=== PATIENT | female | born 1995 | race Caucasian/White ===

== ENCOUNTER 2017-07-21 23:20 | Emergency (ER) | payer OTHER ==
[~2017-07-21 23:20] MED LIST: NITR1CAP36 PO; PREN1CAP30 PO; PROM25TA10 PO; ZANT150T2 PO
[2017-07-22 00:32] LABS: BACTERIA, URINE RARE /hpf; BILIRUBIN, URINE NEG (NEG); BLOOD, URINE NEG (NEG); GLUCOSE,URINE NEG (NEG); KETONE, URINE NEG (NEG); MUCUS URINE FEW /lpf (OCC); NITRITE,URINE NEG (NEG); SQUAMOUS EPITHELIAL CELL URINE <1 /hpf (0-5); URINE COLOR YELLOW (YELLW/STRAW); URINE LEUKOCYTE ESTERASE NEG (NEG)
--- NOTE | 2017-07-22 00:32 | PD ---
HPI Chief Complaint Spotting Date Seen: Jul 22, 2017 Time Seen: 00:21 Travel History International Travel<30 Days: No Contact w/Intl Traveler<30Days: No Known Affected Area: No History of Present Illness HPI 22-year-old 2 para 1 at 29-3/7 weeks gestation presents tonight with complaint of light vaginal spotting. She also had mild cramping. She denies any leakage of fluid or significant vaginal discharge. She reports good movement. Her last intercourse was 2 weeks ago. She denies any dysuria hematuria or frequency. She reports that she was being treated for a urinary tract infection 2 weeks ago and discontinued her antibiotic course without completing it. History Past Medical History Medical History: Denies Significant Hx Obstetric History Obstetric History One prior term vaginal delivery [facility] She is Rh- and reports having received RhoGAM last week. Past Surgical History Narrative Surgical Cholecystectomy Family History Family History: Negative Social History Alcohol Use: No Tobacco Use: No Substance Abuse: No Allergies-Medications (Allergen,Severity, Reaction): Coded Allergies: codeine (Unverified Allergy, Severe, 07/04/17) itchy rash and vomiting onion (Unverified Allergy, Severe, throat swelling, 07/04/17) tomato (Unverified Allergy, Severe, hives, 07/04/17) Home Meds Active Scripts Ranitidine (Zantac) 150 Mg Tab, 150 MG PO BID for Reduce Stomach Acid, #60 TAB 6 Refills Prov:Lala Bustamante 07/04/17 Nitrofurantoin Macrocrystal (Nitrofurantoin Macrocrystal) 100 Mg Cap, 100 MG PO BID for Infection, #14 CAP 0 Refills Prov:Lala Bustamante 06/20/17 Without A W/Fe Fum-Fe (Provida Dha 16-16-1.25-110 mg) 1 Cap Cap, 1 TAB PO DAILY for 30 Days, #1 BOTTLE 11 Refills Prov:Lala Bustamante 03/06/17 Promethazine (Phenergan) 25 Mg Tablet, 25 MG PO Q6H Y for NAUSEA OR VOMITING, # 30 TAB 0 Refills Prov:Lala Bustamante 03/06/17 Review of Systems Except as stated in HPI: all other systems reviewed are Neg Physical Exam Narrative GENERAL: Well-nourished, well-developed patient. SKIN: Warm and dry. HEAD: Normocephalic and atraumatic. EYES: No scleral icterus. No injection or drainage. ENT: No nasal drainage noted. Mucous membranes pink. Airway patent. NECK: Supple, trachea midline. No JVD. CARDIOVASCULAR: Regular rate and rhythm without murmurs, gallops, or rubs. RESPIRATORY: Breath sounds equal bilaterally. No accessory muscle use. ABDOMEN/GI: Abdomen soft, non-tender, bowel sounds present, no rebound, no guarding Gravid to [-] weeks size Fundal Height: [-] GENITOURINARY: External Genitalia: intact and normal in appearance BUS glands: [Negative, vaginal discharge appears physiologic with a slight pink discoloration-] Cervix: [No active bleeding from the cervix-] Dilatation: [Closed-] Effacement: [-Long] Station: [High] Presentation: [-] Membranes: [intact ] Uterine Contractions: [-None] FHT's: Category: [-1] Baseline: [-] Reactive: [-y] Variability: [-] Decels: [-] EXTREMITIES: No cyanosis or edema. BACK: Nontender without obvious deformity. No CVA tenderness. NEUROLOGICAL: Awake and alert. Motor and sensory grossly within normal limits. Five out of 5 muscle strength in all muscle groups. Normal speech. Data Data Orders Orders Vital Signs (Adult) .ON ADMISSION (07/22/17 00:19) ^ Labor Status (07/22/17 00:19) Urinalysis - C+S If Indicated (07/22/17 00:19) ^ Non Stress Test (07/22/17 00:19) Wet Prep Profile (07/22/17 00:19) MDM Medical Record Reviewed: Yes Narrative Course / MDM Assessment: 29+ week intrauterine with minimal spotting without evidence of cervical change or contraction activity. No vaginitis or urinary tract infection are apparent. Plan: She is Rh- and received Gema last week. Precautions reviewed. Diagnosis Diagnosis: Primary Impression: 29 weeks gestation of Additional Impression: Spotting affecting in third trimester Disposition: DISCHARGE HOME Condition: Good Luis Weston MD Jul 22, 2017 00:32
[2017-07-28] MEDS ORDERED: MEDR4PAK PO (09:11)
[2017-07-28] MEDS ORDERED: PROC2.5C RECTAL (09:11)
== END 2017-07-22 01:08 | disposition home or self-care (01) ==
LOC: HOBED 23:20
DX: O26.853 Spotting complicating pregnancy, third trimester (principal); Z3A.29 29 weeks gestation of pregnancy
CPT/HCPCS: 81001; 87210; 99284

== ENCOUNTER 2017-08-27 13:26 | Emergency (ER) | payer OTHER ==
[~2017-08-27 13:26] MED LIST changes: +MEDR4PAK PO; -NITR1CAP36 PO; +PROC2.5C RECTAL
[2017-08-27] MEDS ORDERED: LACTATED RINGER'S 1000 ML INJ 1,000 ML IV ONE (13:27)
[2017-08-27] MEDS ORDERED: ONDANSETRON HCL 4 MG/2 ML VIAL ONE (14:14)
--- NOTE | 2017-08-27 14:14 | PD ---
HPI Chief Complaint Nausea and vomiting Date Seen: Aug 27, 2017 Travel History International Travel<30 Days: No Contact w/Intl Traveler<30Days: No Known Affected Area: No History of Present Illness HPI 22-year-old 2 para 1 at 34+ weeks gestation who reports multiple episodes of nausea and vomiting since this morning. She denies any fever chills , hematuria dysuria or frequency. She reports good movement, no leakage of fluid or bleeding. She is uncertain if she is having any cramping. History Past Medical History Medical History: Denies Significant Hx Obstetric History Obstetric History One prior term vaginal delivery Current is uncomplicated. Past Surgical History Narrative Surgical Cholecystectomy Family History Family History: Negative Social History Alcohol Use: No Tobacco Use: No Substance Abuse: No Allergies-Medications (Allergen,Severity, Reaction): Coded Allergies: codeine (Unverified Allergy, Severe, 08/07/17) itchy rash and vomiting onion (Unverified Allergy, Severe, throat swelling, 08/07/17) tomato (Unverified Allergy, Severe, hives, 08/07/17) Home Meds Active Scripts Methylprednisolone Dosepak (Medrol Dosepak) 4 Mg Dspk, 4 MG PO DIRECTED, #1 DSPK 0 Refills Per Pharmacist direction Prov:Lala Bustamante 07/28/17 Hydrocortisone Rectal 2.5% (Proctosol Hc 2.5%) 2.5% Cream, 1 APPLIC RECTAL Q4H Y for PAIN/INFLAMMATION, #1 TUBE 2 Refills Prov:Lala Bustamante 07/28/17 Ranitidine (Zantac) 150 Mg Tab, 150 MG PO BID for Reduce Stomach Acid, #60 TAB 6 Refills Prov:Lala Bustamante 07/04/17 Without A W/Fe Fum-Fe (Provida Dha 16-16-1.25-110 mg) 1 Cap Cap, 1 TAB PO DAILY for 30 Days, #1 BOTTLE 11 Refills Prov:Lala Bustamante 03/06/17 Promethazine (Phenergan) 25 Mg Tablet, 25 MG PO Q6H Y for NAUSEA OR VOMITING, # 30 TAB 0 Refills Prov:Lala Bustamante 03/06/17 Review of Systems Except as stated in HPI: all other systems reviewed are Neg Physical Exam Narrative GENERAL: Well-nourished, well-developed patient. SKIN: Warm and dry. HEAD: Normocephalic and atraumatic. EYES: No scleral icterus. No injection or drainage. ENT: No nasal drainage noted. Mucous membranes pink. Airway patent. NECK: Supple, trachea midline. No JVD. CARDIOVASCULAR: Regular rate and rhythm without murmurs, gallops, or rubs. RESPIRATORY: Breath sounds equal bilaterally. No accessory muscle use. BREASTS: Bilateral exam showed no masses , no retractions, no nipple discharge. ABDOMEN/GI: Abdomen soft, non-tender, bowel sounds present, no rebound, no guarding Gravid to [-] weeks size Fundal Height: [-] GENITOURINARY: External Genitalia: intact and normal in appearance BUS glands: [-Normal] Cervix: [-] Dilatation: [Closed-] Effacement: [-Long] Station: [-High] Presentation: [-] Membranes: [intact] Uterine Contractions: [None] FHT's: Category: [-1] Baseline: [-] Reactive: [-] Variability: [-] Decels: [-] EXTREMITIES: No cyanosis or edema. BACK: Nontender without obvious deformity. No CVA tenderness. NEUROLOGICAL: Awake and alert. Motor and sensory grossly within normal limits. Five out of 5 muscle strength in all muscle groups. Normal speech. Data Data Vital Signs Reviewed: Yes Group B Strep: Negative MDM Medical Record Reviewed: Yes Narrative Course / MDM Assessment: Probable viral gastroenteritis Plan: IV hydration, antiemetics Diagnosis Diagnosis: Primary Impression: 34 weeks gestation of Additional Impression: Gastroenteritis Disposition: 01 DISCHARGE HOME Condition: Good Scripts Ondansetron Odt (Zofran Odt) 4 Mg Tab 4 MG SL Q6HR Y for Nausea/Vomiting, #12 TAB 0 Refills Prov: Luis Weston MD 08/27/17 Luis Weston MD Aug 27, 2017 14:14
[2017-08-27] MEDS ORDERED: ONDANSETRON ODT 4 MG TAB PO ONE (14:15)
[2017-08-27] MEDS ORDERED: ZOFR4TAB3 SL (14:43)
== END 2017-08-27 15:09 | disposition home or self-care (01) ==
LOC: HOBED 13:26
DX: O26.893 Other specified pregnancy related conditions, third trimester (principal); K52.9 Noninfective gastroenteritis and colitis, unspecified; Z3A.34 34 weeks gestation of pregnancy; Z88.5 Allergy status to narcotic agent
CPT/HCPCS: 59025; 96374; 99284; J2405; J7120

== ENCOUNTER 2017-09-12 23:18 | Emergency (ER) | payer OTHER ==
[~2017-09-12 23:18] MED LIST changes: +ZOFR4TAB3 SL
--- NOTE | 2017-09-12 23:59 | PD ---
HPI Chief Complaint Patient complains of persistent cough Date Seen: Sep 12, 2017 Time Seen: 23:48 Travel History International Travel<30 Days: No Contact w/Intl Traveler<30Days: No Known Affected Area: No History of Present Illness HPI 22-year-old white female at 37 weeks who [facility] the [facility] and presents complaining of persistent severe cough for 6 days, she went to the [facility] diagnosed with bronchitis and given a Z-Saud but no medicine for cough. She has no obstetric problem other than some pains in the abdomen related to coughing so much there are no contractions on the monitor heart rate tracing is reactive. Denies leakage or bleeding. Weeks Gestation: 37 Para: 1 : 2 History Obstetric History Obstetric History 1 vaginal delivery Social History Alcohol Use: No Tobacco Use: No Substance Abuse: No Allergies-Medications (Allergen,Severity, Reaction): Coded Allergies: codeine (Unverified Allergy, Severe, 08/07/17) itchy rash and vomiting onion (Unverified Allergy, Severe, throat swelling, 08/07/17) tomato (Unverified Allergy, Severe, hives, 08/07/17) Home Meds Active Scripts Ondansetron Odt (Zofran Odt) 4 Mg Tab, 4 MG SL Q6HR Y for Nausea/Vomiting, #12 TAB 0 Refills Prov:Luis Weston MD 08/27/17 Methylprednisolone Dosepak (Medrol Dosepak) 4 Mg Dspk, 4 MG PO DIRECTED, #1 DSPK 0 Refills Per Pharmacist direction Prov:Lala Bustamante 07/28/17 Hydrocortisone Rectal 2.5% (Proctosol Hc 2.5%) 2.5% Cream, 1 APPLIC RECTAL Q4H Y for PAIN/INFLAMMATION, #1 TUBE 2 Refills Prov:Lala Bustamante 07/28/17 Ranitidine (Zantac) 150 Mg Tab, 150 MG PO BID for Reduce Stomach Acid, #60 TAB 6 Refills Prov:Lala Bustamante 07/04/17 Without A W/Fe Fum-Fe (Provida Dha 16-16-1.25-110 mg) 1 Cap Cap, 1 TAB PO DAILY for 30 Days, #1 BOTTLE 11 Refills Prov:Ariana Bustamanterani NIELSEN 03/06/17 Promethazine (Phenergan) 25 Mg Tablet, 25 MG PO Q6H Y for NAUSEA OR VOMITING, # 30 TAB 0 Refills Prov:RobbyLala Gustavo NIELSEN 03/06/17 Review of Systems General / Constitutional: No: Fever, Weight Gain, Chills, Other Eyes: No: Diploplia, Blurred Vision, Visual changes, Pain, Photophobia HENT: No: Headaches, Vertigo, Lightheadedness Cardiovascular: No: Irregular Rhythm, Chest Pain or Discomfort, Palpitations, Tachycardia, Syncope, Varicosities, Edema, Cyanosis Respiratory: Cough, No: Short of Breath, Other Gastrointestinal: No: Nausea, Vomiting, Diarrhea Genitourinary: No: Decreased Urinary Output, Oliguria Musculoskeletal: No: Limited ROM, Weakness, Cramping, Edema, Pain Skin: No Rash, No Itching, No Dryness, No Lumps, No Change in Pigmentation, No Change in Nails, No Alopecia, No Lesions Neurologic: No: Weakness, Dizziness, Syncope, Focal Abnormalities, Coordination Problem, Headache, Slurred Speech, Seizures Psychiatric: No: Depression, Suicidal Ideations, Homicidal Ideation Endocrine: No: Heat Intolerance, Cold Intolerance, Polydipsia, Polyuria, Other Physical Exam Narrative GENERAL: Well-nourished, well-developed patient. SKIN: Warm and dry. HEAD: Normocephalic and atraumatic. EYES: No scleral icterus. No injection or drainage. ENT: No nasal drainage noted. Mucous membranes pink. Airway patent. No redness or exudate or swelling NECK: Supple, trachea midline. No JVD. CARDIOVASCULAR: Regular rate and rhythm without murmurs, gallops, or rubs. RESPIRATORY: Breath sounds equal bilaterally. No accessory muscle use. BREASTS: Bilateral exam showed no masses , no retractions, no nipple discharge. ABDOMEN/GI: Abdomen soft, non-tender, bowel sounds present, no rebound, no guarding Gravid to [-37] weeks size Fundal Height: [37-] GENITOURINARY: -] Membranes: [intact ] Uterine Contractions: [-none] FHT's: Category: [1-] Baseline: [-133] Reactive: [-R] Variability: [-mod] Decels: [-none] EXTREMITIES: No cyanosis or edema. BACK: Nontender without obvious deformity. No CVA tenderness. NEUROLOGICAL: Awake and alert. Motor and sensory grossly within normal limits. Five out of 5 muscle strength in all muscle groups. Normal speech. MDM Interpretation(s) 22-year-old white female with persistent cough related to URI, patient's on Z- Saud now for the same infection given to her by the [facility]. She is continuing to cough however has had that problem for 6 days. Robitussin [id number] has not been helpful patient states that she had an allergy to codeine but when questioned that just made her throw up and she was so young she cannot remember what it did or if he did anything. In this case because coatings about the only thing this can really help this cough I suggested she take it with Phenergan with codeine cough syrup in small doses at first and then if it does not cause a problem continued to take it for cough therapy Plan Plan to give patient a prescription for Phenergan with codeine cough syrup use as described above follow-up with Dr. Neeraj Knight in 2 days Diagnosis Diagnosis: Primary Impression: Cough Additional Impressions: Upper respiratory infection, acute Abdominal pain affecting Disposition: 01 DISCHARGE HOME Condition: Stable El Tang II, MD Sep 12, 2017 23:59
== END 2017-09-13 00:07 | disposition home or self-care (01) ==
LOC: HOBED 23:18
DX: O26.893 Other specified pregnancy related conditions, third trimester (principal); J06.9 Acute upper respiratory infection, unspecified; R10.9 Unspecified abdominal pain; Z3A.37 37 weeks gestation of pregnancy; Z88.5 Allergy status to narcotic agent; Z79.899 Other long term (current) drug therapy
CPT/HCPCS: 99283

== ENCOUNTER → 2017-10-08 | Emergency (ER) | payer OTHER ==
[~2017-10-08] MED LIST changes: +IBUP1TAB7 PO
--- NOTE | 2017-10-08 16:09 | PD ---
HPI Chief Complaint ctxs, ? srom Date Seen: Oct 08, 2017 Time Seen: 16:00 Travel History International Travel<30 Days: No Contact w/Intl Traveler<30Days: No Known Affected Area: No History of Present Illness HPI pt. is a 22 y/o @ 40 4/7 weeks w/ c/o some fluid leak and ctxs. pt. states fluid began earlier today and ctxs began last pm. ctxs increased in freq and intensity since. +FM, no vb. Weeks Gestation: 40 Para: 1 : 2 History Past Medical History Medical History: Denies Significant Hx Obstetric History Obstetric History , s/p Past Surgical History Surgical History: No Previous Surgery Family History Family History: Negative Social History Alcohol Use: No Tobacco Use: No Substance Abuse: No Allergies-Medications (Allergen,Severity, Reaction): Coded Allergies: codeine (Unverified Allergy, Severe, 08/07/17) itchy rash and vomiting onion (Unverified Allergy, Severe, throat swelling, 08/07/17) tomato (Unverified Allergy, Severe, hives, 08/07/17) Home Meds Active Scripts Ondansetron Odt (Zofran Odt) 4 Mg Tab, 4 MG SL Q6HR Y for Nausea/Vomiting, #12 TAB 0 Refills Prov:Luis Weston MD 08/27/17 Methylprednisolone Dosepak (Medrol Dosepak) 4 Mg Dspk, 4 MG PO DIRECTED, #1 DSPK 0 Refills Per Pharmacist direction Prov:Lala Bustamante 07/28/17 Hydrocortisone Rectal 2.5% (Proctosol Hc 2.5%) 2.5% Cream, 1 APPLIC RECTAL Q4H Y for PAIN/INFLAMMATION, #1 TUBE 2 Refills Prov:Lala Bustamante 07/28/17 Ranitidine (Zantac) 150 Mg Tab, 150 MG PO BID for Reduce Stomach Acid, #60 TAB 6 Refills Prov:Lala Bustamante 07/04/17 Without A W/Fe Fum-Fe (Provida Dha 16-16-1.25-110 mg) 1 Cap Cap, 1 TAB PO DAILY for 30 Days, #1 BOTTLE 11 Refills Prov:Lala Bustamante 03/06/17 Promethazine (Phenergan) 25 Mg Tablet, 25 MG PO Q6H Y for NAUSEA OR VOMITING, # 30 TAB 0 Refills Prov:Lala BustamanteLaxmi GARYP 03/06/17 Review of Systems Except as stated in HPI: all other systems reviewed are Neg Physical Exam Narrative GENERAL: Well-nourished, well-developed patient. SKIN: Warm and dry. HEAD: Normocephalic and atraumatic. EYES: No scleral icterus. No injection or drainage. ENT: No nasal drainage noted. Mucous membranes pink. Airway patent. NECK: Supple, trachea midline. No JVD. CARDIOVASCULAR: Regular rate and rhythm without murmurs, gallops, or rubs. RESPIRATORY: Breath sounds equal bilaterally. No accessory muscle use. BREASTS: Bilateral exam showed no masses , no retractions, no nipple discharge. ABDOMEN/GI: Abdomen soft, non-tender, bowel sounds present, no rebound, no guarding Gravid GENITOURINARY: External Genitalia: intact and normal in appearance Cervix: post Dilatation: 2 Effacement: 80 Station: high Presentation: cephalic Membranes: intact, amniosure - Uterine Contractions: irreg FHT's: Category: 1 Reactive: + Variability: mod Decels: none EXTREMITIES: No cyanosis or edema. BACK: Nontender without obvious deformity. No CVA tenderness. NEUROLOGICAL: Awake and alert. Motor and sensory grossly within normal limits. Five out of 5 muscle strength in all muscle groups. Normal speech. Data Data Vital Signs Reviewed: Yes [facility] Medical Record Reviewed: Yes Plan pt. not in active labor as no cervical change and amniosure -. condition d/w pt. pt. to be d/c to home. pt. given precautions for return. f/u as sched. Diagnosis Diagnosis: Primary Impression: Uterine contractions during Additional Impressions: Leakage of amniotic fluid 40 weeks gestation of Disposition: 01 DISCHARGE HOME Costa Moore Jr., MD Oct 08, 2017 16:09
== END | disposition home or self-care (01) ==
LOC: HOBED 13:45
DX: O42.92 Full-term premature rupture of membranes, unspecified as to length of time between rupture and onset of labor (principal); Z3A.40 40 weeks gestation of pregnancy
CPT/HCPCS: 59025; 84112

== ENCOUNTER 2017-10-09 06:06 | Inpatient (IN) | payer OTHER ==
[~2017-10-09] VITALS: Ht 167.6 cm; Wt 111.0 kg
[~2017-10-09 06:06] MED LIST changes: -IBUP1TAB7 PO
[2017-10-09] MEDS ORDERED: OXYTOCIN 30 UNITS-500ML PREMIX 500 ML ONE (06:11)
[2017-10-09] MEDS ORDERED: LIDOCAINE HCL 1% PF 30 ML VIAL ONE (06:11)
[2017-10-09] MEDS ORDERED: LIDOCAINE 1%/EPINEPHrine 1:100,000 SOLN 30 ML VIAL ONE (06:12)
[2017-10-09] MEDS ORDERED: OXYTOCIN 10 UNIT/ML AMP ONE (06:14)
--- NOTE | 2017-10-09 06:42 | PD ---
HPI Chief Complaint ctxs Date Seen: Oct 09, 2017 Time Seen: 06:38 Travel History International Travel<30 Days: No Contact w/Intl Traveler<30Days: No Known Affected Area: No History of Present Illness HPI pt. is a 22 y/o @ 40 5/7 weeks present w/ c/o ctxs. pt. seen earlier w / ctxs, but not in active labor. pt. states increased in intensity and freq after she left. Had srom in car. no vb. Weeks Gestation: 40 Para: 1 : 2 History Past Medical History Medical History: Denies Significant Hx Obstetric History Obstetric History , x 1 Past Surgical History Surgical History: No Previous Surgery Family History Family History: Negative Social History Alcohol Use: No Tobacco Use: No Substance Abuse: No Allergies-Medications (Allergen,Severity, Reaction): Coded Allergies: codeine (Unverified Allergy, Severe, 08/07/17) itchy rash and vomiting onion (Unverified Allergy, Severe, throat swelling, 08/07/17) tomato (Unverified Allergy, Severe, hives, 08/07/17) Home Meds Active Scripts Ondansetron Odt (Zofran Odt) 4 Mg Tab, 4 MG SL Q6HR Y for Nausea/Vomiting, #12 TAB 0 Refills Prov:Luis Weston MD 08/27/17 Methylprednisolone Dosepak (Medrol Dosepak) 4 Mg Dspk, 4 MG PO DIRECTED, #1 DSPK 0 Refills Per Pharmacist direction Prov:Lala Bustamante 07/28/17 Hydrocortisone Rectal 2.5% (Proctosol Hc 2.5%) 2.5% Cream, 1 APPLIC RECTAL Q4H Y for PAIN/INFLAMMATION, #1 TUBE 2 Refills Prov:Lala Bustamante 07/28/17 Ranitidine (Zantac) 150 Mg Tab, 150 MG PO BID for Reduce Stomach Acid, #60 TAB 6 Refills Prov:Lala Bustamante 07/04/17 Without A W/Fe Fum-Fe (Provida Dha 16-16-1.25-110 mg) 1 Cap Cap, 1 TAB PO DAILY for 30 Days, #1 BOTTLE 11 Refills Prov:Lala Bsutamante 03/06/17 Promethazine (Phenergan) 25 Mg Tablet, 25 MG PO Q6H Y for NAUSEA OR VOMITING, # 30 TAB 0 Refills Prov:Lala Bustamante [employer] INSPECTOR 03/06/17 Review of Systems Except as stated in HPI: all other systems reviewed are Neg Physical Exam Narrative GENERAL: Well-nourished, well-developed patient. SKIN: Warm and dry. HEAD: Normocephalic and atraumatic. EYES: No scleral icterus. No injection or drainage. ENT: No nasal drainage noted. Mucous membranes pink. Airway patent. NECK: Supple, trachea midline. No JVD. CARDIOVASCULAR: Regular rate and rhythm without murmurs, gallops, or rubs. RESPIRATORY: Breath sounds equal bilaterally. No accessory muscle use. BREASTS: Bilateral exam showed no masses , no retractions, no nipple discharge. ABDOMEN/GI: Abdomen soft, non-tender, bowel sounds present, no rebound, no guarding Gravid GENITOURINARY: External Genitalia: intact and normal in appearance BUS glands: [-] Cervix: ant Dilatation: 10 Effacement: 100 Station: +2 Presentation:cephalic Membranes: ruptured Uterine Contractions: q 2 min FHT's: Category: 2 Reactive: + Variability: mod Decels: theo EXTREMITIES: No cyanosis or edema. BACK: Nontender without obvious deformity. No CVA tenderness. NEUROLOGICAL: Awake and alert. Motor and sensory grossly within normal limits. Five out of 5 muscle strength in all muscle groups. Normal speech. Data Data Vital Signs Reviewed: Yes Orders Orders Oxytocin 30 Units-500ml Premix (Pitocin (10/09/17 06:11) Lidocaine Pf 1% Inj (Xylocaine-Mpf 1% In (10/09/17 06:11) Lidocai-Epi 1%-1:100,000 Inj (Xylocaine- (10/09/17 06:12) Oxytocin Inj (Pitocin Inj) (10/09/17 06:14) [place] Medical Record Reviewed: Yes Plan pt. in active labor. to be admitted. efm/toco. expect . Costa Moore Jr., MD Oct 09, 2017 06:42
--- NOTE | 2017-10-09 06:45 | HHI.HP ---
History & Physical H&P HPI Chief Complaint ctxs Date Seen: Oct 09, 2017 Time Seen: 06:38 Travel History International Travel<30 Days: No Contact w/Intl Traveler<30Days: No Known Affected Area: No History of Present Illness HPI pt. is a 22 y/o @ 40 5/7 weeks present w/ c/o ctxs. pt. seen earlier w / ctxs, but not in active labor. pt. states increased in intensity and freq after she left. Had srom in car. no vb. Weeks Gestation: 40 Para: 1 : 2 History Past Medical History Medical History: Denies Significant Hx Obstetric History Obstetric History , x 1 Past Surgical History Surgical History: No Previous Surgery Family History Family History: Negative Social History Alcohol Use: No Tobacco Use: No Substance Abuse: No Allergies-Medications (Allergen,Severity, Reaction): Coded Allergies: codeine (Unverified Allergy, Severe, 08/07/17) itchy rash and vomiting onion (Unverified Allergy, Severe, throat swelling, 08/07/17) tomato (Unverified Allergy, Severe, hives, 08/07/17) Home Meds Active Scripts Ondansetron Odt (Zofran Odt) 4 Mg Tab, 4 MG SL Q6HR Y for Nausea/Vomiting, #12 TAB 0 Refills Prov:Luis Weston MD 08/27/17 Methylprednisolone Dosepak (Medrol Dosepak) 4 Mg Dspk, 4 MG PO DIRECTED, #1 DSPK 0 Refills Per Pharmacist direction Prov:Lala Bustamante 07/28/17 Hydrocortisone Rectal 2.5% (Proctosol Hc 2.5%) 2.5% Cream, 1 APPLIC RECTAL Q4H Y for PAIN/INFLAMMATION, #1 TUBE 2 Refills Prov:Lala Bustamante 07/28/17 Ranitidine (Zantac) 150 Mg Tab, 150 MG PO BID for Reduce Stomach Acid, #60 TAB 6 Refills Prov:Lala Bustamante 07/04/17 Without A W/Fe Fum-Fe (Provida Dha 16-16-1.25-110 mg) 1 Cap Cap, 1 TAB PO DAILY for 30 Days, #1 BOTTLE 11 Refills Prov:Lala Bustamante DOUBLE END TRIMMER 03/06/17 Promethazine (Phenergan) 25 Mg Tablet, 25 MG PO Q6H Y for NAUSEA OR VOMITING, # 30 TAB 0 Refills Prov:Lala BustamanteLaxmi NIELSEN 03/06/17 Review of Systems Except as stated in HPI: all other systems reviewed are Neg Physical Exam Narrative GENERAL: Well-nourished, well-developed patient. SKIN: Warm and dry. HEAD: Normocephalic and atraumatic. EYES: No scleral icterus. No injection or drainage. ENT: No nasal drainage noted. Mucous membranes pink. Airway patent. NECK: Supple, trachea midline. No JVD. CARDIOVASCULAR: Regular rate and rhythm without murmurs, gallops, or rubs. RESPIRATORY: Breath sounds equal bilaterally. No accessory muscle use. BREASTS: Bilateral exam showed no masses , no retractions, no nipple discharge. ABDOMEN/GI: Abdomen soft, non-tender, bowel sounds present, no rebound, no guarding Gravid GENITOURINARY: External Genitalia: intact and normal in appearance BUS glands: [-] Cervix: ant Dilatation: 10 Effacement: 100 Station: +2 Presentation:cephalic Membranes: ruptured Uterine Contractions: q 2 min FHT's: Category: 2 Reactive: + Variability: mod Decels: theo EXTREMITIES: No cyanosis or edema. BACK: Nontender without obvious deformity. No CVA tenderness. NEUROLOGICAL: Awake and alert. Motor and sensory grossly within normal limits. Five out of 5 muscle strength in all muscle groups. Normal speech. Data Data Vital Signs Reviewed: Yes Orders Orders Oxytocin 30 Units-500ml Premix (Pitocin (10/09/17 06:11) Lidocaine Pf 1% Inj (Xylocaine-Mpf 1% In (10/09/17 06:11) Lidocai-Epi 1%-1:100,000 Inj (Xylocaine- (10/09/17 06:12) Oxytocin Inj (Pitocin Inj) (10/09/17 06:14) MDM Medical Record Reviewed: Yes Plan pt. in active labor. to be admitted. efm/toco. expect . Costa Moore Jr., MD Oct 09, 2017 06:45
[2017-10-09 07:06] VITALS: RESP 16
[2017-10-09] MEDS ORDERED: ONDANSETRON ODT 4 MG TAB PO PRN (07:15)
[2017-10-09] MEDS ORDERED: BENZOCAINE 20% TOPICAL SPRAY 60 ML CAN TOPICAL PRN (07:15)
[2017-10-09] MEDS ORDERED: SODIUM CHLORIDE 0.9% FLUSH 10 ML FLUSH IV FLUSH PRN (07:15)
[2017-10-09] MEDS ORDERED: ZOLPIDEM TARTRATE 5 MG TAB PO PRN (07:15)
[2017-10-09] MEDS ORDERED: ALUMINUM/MAGNESIUM/SIMETH 30 ML CUP PO PRN (07:15)
[2017-10-09] MEDS ORDERED: DOCUSATE SODIUM 50 MG/SENNA 8.6 MG TAB PO PRN (07:15)
[2017-10-09] MEDS ORDERED: ACETAMINOPHEN 325 MG TAB PO PRN (07:15)
[2017-10-09] MEDS ORDERED: WITCH HAZEL 50%/GLYCERIN 12.5% 40 PAD JAR TOPICAL PRN (07:15)
[2017-10-09] MEDS ORDERED: OXYTOCIN 30 UNITS-500ML PREMIX 500 ML IV SCH (07:15)
[2017-10-09 07:16] VITALS: BP 101/55; PULSE 68
[2017-10-09 07:19] VITALS: RESP 18; TEMP 97.8
[2017-10-09] MEDS ORDERED: LACTATED RINGER'S 1000 ML INJ 1,000 ML IV PRN (07:22)
[2017-10-09] MEDS ORDERED: LACTATED RINGER'S 1000 ML INJ 1,000 ML IV SCH (07:22)
[2017-10-09] MEDS ORDERED: MINERAL OIL 10 ML VIAL TOPICAL PRN (07:30)
[2017-10-09] MEDS ORDERED: OXYTOCIN 30 UNITS-500ML PREMIX 500 ML IV ONE (07:30)
[2017-10-09] MEDS ORDERED: CITRIC ACID-SODIUM CITRATE LIQ 30 ML UDC PO SCH (07:30)
[2017-10-09] MEDS ORDERED: LIDOCAINE HCL 1% 50 ML VIAL I-DERMAL PRN (07:30)
[2017-10-09] MEDS ORDERED: SODIUM CHLORID 0.9% 500 ML INJ 500 ML IV PRN (07:30)
[2017-10-09] MEDS ORDERED: LIDOCAINE HCL 1% 50 ML VIAL INFIL PRN (07:30)
[2017-10-09 07:34] LABS: AUTOMATED NEUTROPHIL # 13.9 TH/MM3 (1.8-7.7); BASOPHIL # 0.1 TH/MM3 (0-0.2); BASOPHIL % 0.3 % (0.0-2.0); EOSINOPHIL # 0.1 TH/MM3 (0-0.4); EOSINOPHIL % 0.7 % (0.0-4.0); HEMATOCRIT 34.6 % (35.0-46.0); HEMOGLOBIN 11.5 GM/DL (11.6-15.3); LYMPH % 13.3 % (9.0-44.0); LYMPHOCYTE # 2.3 TH/MM3 (1.0-4.8); MEAN CELL VOLUME 80.2 FL (80.0-100.0); MEAN CORPUSCULAR HEMOGLOBIN 26.6 PG (27.0-34.0); MEAN CORPUSCULAR HGB CONC 33.1 % (32.0-36.0); MEAN PLATELET VOLUME 8.6 FL (7.0-11.0); MONO % 6.5 % (0.0-8.0); MONOCYTE # 1.1 TH/MM3 (0-0.9); NEUT % 79.2 % (16.0-70.0); PLATELET COUNT 235 TH/MM3 (150-450); RED BLOOD COUNT 4.32 MIL/MM3 (4.00-5.30); RED CELL DISTRIBUTION WIDTH 15.5 % (11.6-17.2); WHITE BLOOD COUNT 17.5 TH/MM3 (4.0-11.0)
[2017-10-09] MEDS ORDERED: SODIUM CHLOR 0.9% 1000 ML INJ 1,000 ML IV PRN (07:42)
[2017-10-09] MEDS: IBUPROFEN 800 MG TAB PO PRN ×2 (08:03→16:09)
[2017-10-09 08:08] VITALS: BP 121/59; PULSE 74; RESP 18; TEMP 97.9
--- NOTE | 2017-10-09 08:27 | PD.OB.DELI ---
Weeks gestation: 40 Pt started active labor?: Yes Medical induction of labor?: No Artificial rupture of membrane: No Anesthesia: None Episiotomy: None Vaginal Delivery: Normal, Spontaneous Presentation: Occiput anterior Nuchal Cord: None Delayed cord clamping (45 sec): Yes Infant: Female Delivery date: Oct 09, 2017 Delivery time: 06:12 One Minute : 9 Five Minute : 9 Weight: 8'10" Placenta: Spontaneous delivery, Intact Laceration: Vaginal laceration, 1 deg Repair: Vicryl running Estimated blood loss: 500 Additional Information pt. present complete dialation. pt. have precipitous delivery by nursing w/ placenta delivered by az. Costa Moore Jr., MD Oct 09, 2017 08:27
[2017-10-09] MEDS ORDERED: SODIUM CHLORIDE 0.9% FLUSH 10 ML FLUSH IV FLUSH SCH (09:00)
[2017-10-09 09:58] LABS: BILIRUBIN, URINE NEG (NEG); BLOOD, URINE LARGE (NEG); GLUCOSE,URINE NEG (NEG); KETONE, URINE NEG (NEG); MUCUS URINE FEW /lpf (OCC); NITRITE,URINE NEG (NEG); SQUAMOUS EPITHELIAL CELL URINE <1 /hpf (0-5); URINE COLOR YELLOW (YELLW/STRAW); URINE LEUKOCYTE ESTERASE MOD (NEG)
[2017-10-09 14:28] VITALS: BP 107/66; PULSE 76; RESP 18; TEMP 97.9
[2017-10-09] MEDS ORDERED: DIPHTH/TETANUS/ACEL PERTUSSIS (BOOSTER) 0.5 ML VIAL/PFS IM ONE (16:00)
[2017-10-09] MEDS ORDERED: MEASLES, MUMPS, RUBELLA VACCINE 0.5 ML VIAL SQ ONE (16:00)
[2017-10-09 20:00] VITALS: BP 101/60; PULSE 83; RESP 18; TEMP 98; O2SAT 97
--- NOTE | 2017-10-10 06:24 | HHI.OB ---
Subjective Post Day: 1 Remarks day # 1. AFVSS overnight. Pain minimal. Lochia less than a period. Denies dysuria. No breast tenderness. She is feeding the baby via brest. Appetite good. No nausea or vomiting. Positive flatus. Positive bowel movement. Ambulating well. Denies calf pain, shortness of breath, or chest pain. Otherwise, she is doing well this morning and has no other complaints. Objective Vitals/I&O Vital Signs Date Time Temp Pulse Resp B/P (MAP) Pulse Ox O2 Delivery O2 Flow Rate FiO2 10/09/17 20:00 98.0 83 18 101/60 (74) 97 10/09/17 14:28 76 18 107/66 (80) 10/09/17 14:28 97.9 10/09/17 08:08 97.9 10/09/17 08:08 74 18 121/59 (79) 10/09/17 07:19 97.8 18 10/09/17 07:16 68 101/55 (70) 10/09/17 07:06 16 Objective Remarks GENERAL: Well-nourished, well-developed patient. CARDIOVASCULAR: Regular rate and rhythm without murmurs, gallops, or rubs. RESPIRATORY: Breath sounds equal bilaterally. No accessory muscle use. ABDOMEN/GI: Abdomen soft, non-tender. Fundus: Firm, non-tender at umbilicus. GENITOURINARY: Light to moderate bleeding. EXTREMITIES: No cyanosis or edema, non-tender, without signs of DVT. Medications and IVs Current Medications Medications (Trade) Dose Ordered Sig/Alfredo Route Start Time Stop Time Status Last Admin (NS Flush) 2 ml BID IV FLUSH 10/09/17 09:00 (NS Flush) 2 ml UNSCH PRN IV FLUSH 10/09/17 07:15 (Tylenol) 650 mg Q4H PRN PO 10/09/17 07:15 (Motrin) 800 mg Q8H PRN PO 10/09/17 07:15 10/09/17 16:09 (Americaine 20% Top Spr) 1 spray Q4H PRN TOPICAL 10/09/17 07:15 10/09/17 14:33 (Tucks Pads) 1 applic QID PRN TOPICAL 10/09/17 07:15 10/09/17 08:03 (Solange-Colace) 2 tab Q12H PRN PO 10/09/17 07:15 (Ambien) 5 mg HS PRN PO 10/09/17 07:15 (Mag-Al Plus Susp Liq) 15 ml Q8H PRN PO 10/09/17 07:15 (Zofran Odt) 4 mg Q6H PRN PO 10/09/17 07:15 Lactated Ringer's 1,000 ml @ 125 mls/hr Q8H IV 10/09/17 07:22 Lactated Ringer's 1,000 ml @ 3,000 mls/hr Q20M PRN IV 10/09/17 07:22 Sodium Chloride 1,000 ml @ 100 mls/hr Q10H PRN IV 10/09/17 07:42 (Xylocaine 1% Inj (50 ml)) 0.1 ml UNSCH X1 PRN I-DERMAL 10/09/17 07:30 10/12/17 07:29 (Bicitra Liq) 30 ml SENIOR RELATIONSHIP MANAGER PO 10/09/17 07:30 10/13/17 07:29 (fentaNYL INJ) 50 mcg Q1H PRN IV PUSH 10/09/17 07:30 (fentaNYL INJ) 100 mcg Q1H PRN IV PUSH 10/09/17 07:30 (Xylocaine 1% Inj (50 ml)) 10 ml UNSCH X1 PRN INFIL 10/09/17 07:30 10/11/17 07:29 (Muri-Lube Oil) 10 ml UNSCH PRN TOPICAL 10/09/17 07:30 Assessment/Plan Assessment and Plan 22 y/o female who is PPD#1 s/p -Continue routine care -Motrin and Percocet PRN for pain -Pericolase PRN for constipation -Encouraged OOB. Advised pelvic rest for 6 wks -Will need a follow-up appointment within 6 wks for post- check -Re: ctrl - pt desires tubal ligation Discussed with Dr. Horne Discharge Planning Discharge home tomorrow Sharon Donahue MD Oct 10, 2017 06:24
[2017-10-10 08:30] VITALS: BP 111/62; PULSE 80; RESP 16; TEMP 98.9
[2017-10-10] MEDS: IBUPROFEN 800 MG TAB PO PRN (17:51)
[2017-10-10 20:00] VITALS: BP 129/69; PULSE 76; RESP 18; TEMP 98.2; O2SAT 96
[2017-10-11 08:00] VITALS: BP 101/62; PULSE 76; RESP 18; TEMP 98; O2SAT 99
--- NOTE | 2017-10-11 08:11 | HHI.OB ---
Subjective Post Day: 2 Remarks day # 2. AFVSS overnight. Pain minimal. Decreased lochia. Denies dysuria. No breast tenderness. She is feeding the baby via breast. Appetite good. No nausea or vomiting. + flatus. Has had a bowel movement. Ambulating well. Denies calf pain, shortness of breath, or cough. Otherwise, she is doing well this morning and has no other complaints. Objective Vitals/I&O Vital Signs Date Time Temp Pulse Resp B/P (MAP) Pulse Ox O2 Delivery O2 Flow Rate FiO2 10/10/17 20:00 98.2 76 18 129/69 (89) 96 10/10/17 08:30 98.9 80 16 111/62 (78) Objective Remarks GENERAL: Well-nourished, well-developed patient. CARDIOVASCULAR: Regular rate and rhythm without murmurs, gallops, or rubs. RESPIRATORY: Breath sounds equal bilaterally. No accessory muscle use. ABDOMEN/GI: Abdomen soft, non-tender. Fundus: Firm, non-tender at umbilicus. GENITOURINARY: Light to moderate bleeding. EXTREMITIES: No cyanosis or edema, non-tender, without signs of DVT. Medications and IVs Current Medications Medications (Trade) Dose Ordered Sig/Alfredo Route Start Time Stop Time Status Last Admin (NS Flush) 2 ml BID IV FLUSH 10/09/17 09:00 (NS Flush) 2 ml UNSCH PRN IV FLUSH 10/09/17 07:15 (Tylenol) 650 mg Q4H PRN PO 10/09/17 07:15 (Motrin) 800 mg Q8H PRN PO 10/09/17 07:15 10/10/17 17:51 (Americaine 20% Top Spr) 1 spray Q4H PRN TOPICAL 10/09/17 07:15 10/09/17 14:33 (Tucks Pads) 1 applic QID PRN TOPICAL 10/09/17 07:15 10/09/17 08:03 (Solange-Colace) 2 tab Q12H PRN PO 10/09/17 07:15 (Ambien) 5 mg HS PRN PO 10/09/17 07:15 (Mag-Al Plus Susp Liq) 15 ml Q8H PRN PO 10/09/17 07:15 (Zofran Odt) 4 mg Q6H PRN PO 10/09/17 07:15 Lactated Ringer's 1,000 ml @ 125 mls/hr Q8H IV 10/09/17 07:22 Lactated Ringer's 1,000 ml @ 3,000 mls/hr Q20M PRN IV 10/09/17 07:22 Sodium Chloride 1,000 ml @ 100 mls/hr Q10H PRN IV 10/09/17 07:42 (Xylocaine 1% Inj (50 ml)) 0.1 ml UNSCH X1 PRN I-DERMAL 10/09/17 07:30 10/12/17 07:29 (Bicitra Liq) 30 ml INDUSTRI[employer] AUTOMATION ENGINEER PO 10/09/17 07:30 10/13/17 07:29 (fentaNYL INJ) 50 mcg Q1H PRN IV PUSH 10/09/17 07:30 (fentaNYL INJ) 100 mcg Q1H PRN IV PUSH 10/09/17 07:30 (Muri-Lube Oil) 10 ml UNSCH PRN TOPICAL 10/09/17 07:30 Assessment/Plan Assessment and Plan 22 y/o female who is PPD#2 s/p -Continue routine care -Motrin and Percocet PRN for pain -Pericolase PRN for constipation -Encouraged OOB. Advised pelvic rest for 6 wks -Will need a follow-up appointment within 6 wks for post- check -Re: ctrl - pt desires tubal ligation Discussed with Discharge Planning Discharge home today Kaylene Mccormack MD R1 Oct 11, 2017 08:11
[2017-10-11] MEDS ORDERED: IBUP1TAB7 PO (08:12)
--- NOTE | 2017-10-11 08:13 | HHI.DCPOC ---
Discharge Care Plan Diagnosis: (1) Vaginal delivery Report Symptoms to Your Doctor -Temperature above 100.5 degrees -Redness, of incision or excessive or foul smelling drainage -Unusual pain or calf pain -Increased vaginal bleeding -Painful or difficulty urinating -Feelings of extreme sadness or anxiety after 2 weeks Goals to Promote Your Health * To prevent worsening of your condition and complications * To maintain your health at the optimal level Directions to Meet Your Goals Take your medications as prescribed Follow your dietary instruction Follow activity as directed Ensure plenty of rest for recovery Drink fluids for hydration Keep your appointments as scheduled Take your immunizations and boosters as scheduled If your symptoms worsen call your PCP, if no PCP go to Urgent Care Center or Emergency Room Smoking is Dangerous to Your Health. Avoid second hand smoke Call the 24-hour crisis hotline for domestic abuse at Kaylene Mccormack MD R1 Oct 11, 2017 08:13
== END 2017-10-11 09:18 | disposition home or self-care (01) | DRG 775 ==
LOC: HOBED 06:06 → H2EB 06:09 → H1EA 07:47
PROVIDERS: ADMIT Obstetrics & Gynecology; ATTEND Obstetrics & Gynecology
PROC: 10E0XZZ Delivery of Products of Conception, External Approach (ICD-10-PCS; principal; 2017-10-09)
PROC: 0HQ9XZZ Repair Perineum Skin, External Approach (ICD-10-PCS; 2017-10-09)
DX: O62.3 Precipitate labor (principal); O70.0 First degree perineal laceration during delivery; Z37.0 Single live birth; Z3A.40 40 weeks gestation of pregnancy
CPT/HCPCS: 59025; 80307; 81001; 84112; 85025; 87086; 90707; 99283; G0481; J2590